=== PATIENT | female | born 1980 | race African-American/Black ===

== ENCOUNTER 2019-03-23 00:10 | Emergency (ER) | payer OTHER ==
[2019-03-23 00:38] VITALS: BMI 49.2
--- NOTE | 2019-03-23 01:38 | PDOC ---
History of Present Illness - General Chief Complaint: Chest Pain Stated Complaint: CHEST PAIN Time Seen by Provider: 03/23/19 01:38 History Source: Patient Exam Limitations: No Limitations Past History - Travel Traveled outside of the country in the last 30 days: No Close contact w/someone who was outside of country & ill: No - Past Medical History Allergies/Adverse Reactions: Allergies Allergy/AdvReac Type Severity Reaction Status Date / Time No Known Allergies Allergy Verified 03/23/19 00:36 Home Medications: Ambulatory Orders Metformin HCl [Glucophage] 500 mg PO BID #30 tablet 03/23/19 Metformin HCl [Glucophage] 500 mg PO BID #30 tablet 03/23/19 Metformin HCl [Glucophage] 500 mg PO BID #30 tablet MDD 2 tab 03/23/19 COPD: No - Suicide/Smoking/Psychosocial Hx Smoking History: Never smoked Have you smoked in the past 12 months: No Information on smoking cessation initiated: No Hx Alcohol Use: No Drug/Substance Use Hx: No *Physical Exam - Vital Signs Last Vital Signs Temp Pulse Resp BP Pulse Ox 98.0 F 73 18 110/73 99 03/23/19 00:36 03/23/19 00:36 03/23/19 00:36 03/23/19 00:36 03/23/19 00:36 ED Treatment Course - LABORATORY CBC & Chemistry Diagram: 03/23/19 02:15 03/23/19 02:15 Medical Decision Making - Medical Decision Making Pt was seen at bedside, also will be seen by attending Dr. Luna. Pt presenting with complaints of mid-sternal, reproducible chest pain, which has worsened since this afternoon. Pt states she has had cough with productive white sputum x1 month. Pt states she received z-pack in early February, which did not help with the sputum production or frequency of cough, but she had a breathing treatment at that time which helped her chest pressure. Pt has not been taking any medications at home. Considering [vs vs] Ordered work-up including CBC, CMP, cardiac profile, ECG, serum , chest x-ray. Provided 20 mg IV pepcid, 1 g ofirmev, and 3 amp duoneb for improvement of chest pressure and indigestion. Will continue to reassess pt and monitor for symptomatic improvement. ECG: NSR, intervals WNL. No TWIs or significant ST segment changes. No significant changes from prior ECG. 03/23/19 02:05 *DC/Admit/Observation/Transfer Diagnosis at time of Disposition: Atypical chest pain - Discharge Dispostion Disposition: HOME Condition at time of disposition: Good Decision to Admit order: No - Prescriptions Prescriptions: Metformin HCl [Glucophage] 500 mg PO BID #30 tablet Metformin HCl [Glucophage] 500 mg PO BID #30 tablet Metformin HCl [Glucophage] 500 mg PO BID #30 tablet MDD 2 tab - Referrals Referrals: ON STAFF,NOT [Primary Care Provider] - - Patient Instructions Printed Discharge Instructions: DI for Atypical Chest Pain Additional Instructions: You were seen in the ER today for chest pressure. The results of your labs and imaging today were normal. Please follow-up with your primary care doctor within 1-2 days to discuss your visit and make sure your symptoms have improved. Please return to the ER if you have any worsening pain, development of fevers or chills, loss of consciousness, inability to tolerate food or fluids , or any other concerns. - Post Discharge Activity
[2019-03-23] MEDS ORDERED: ALBUTEROL SO4 2.5/IPRATROPIUM 0.5 INH SOL 3 ML VIAL.NEB. NEB ONE ×2 (02:02→02:18)
[2019-03-23] MEDS ORDERED: ACETAMINOPHEN 1000 MG/100 ML VIAL (NON FORMULARY) IVPB ONE (02:03)
[2019-03-23] MEDS ORDERED: FAMOTIDINE 20 MG/50 ML IVPB 20 MG/50 ML MG IVPB ONE ×2 (02:03→02:19)
[2019-03-23] MEDS ORDERED: ACETAMINOPHEN INJECTION 100 ML IVPB ONE (02:18)
[2019-03-23 02:57] LABS: BASO % 0.4 % (0-2.0); HEMATOCRIT 37.8 % (32.4-45.2); HEMOGLOBIN 12.6 GM/dL (10.7-15.3); LYMPH % 43.4 % (8-40); MCHC 33.5 g/dl (32.0-36.0); MEAN CELL VOLUME 89.6 fl (80-96); MEAN PLT VOLUME 9.1 fl (7.5-11.1); MONO % 6.3 % (3.8-10.2); NEUT % 47.9 % (42.8-82.8); PLATELET COUNT 281 K/MM3 (134-434); RBC 4.22 M/mm3 (3.60-5.2); RDW 13.4 % (11.6-15.6)
[2019-03-23 03:34] LABS: ALBUMIN 3.1 g/dl (3.4-5.0); ALK PHOS 153 U/L (45-117); ANION GAP 7 MMOL/L (8-16); BILIRUBIN,TOTAL 0.2 mg/dL (0.2-1); BLOOD UREA NITROGEN 15.2 mg/dL (7-18); CHLORIDE 107 mmol/L (98-107); CO2 25 mmol/L (21-32); CREATININE 0.9 mg/dL (0.55-1.3); GLUCOSE,RANDOM 310 mg/dL (74-106); N-TERMINAL BNP 22.1 pg/ml (5-125); POTASSIUM 4.2 mmol/L (3.5-5.1); SGOT/AST 10 U/L (15-37); SGPT/ALT 18 U/L (13-61); SODIUM 139 mmol/L (136-145); TOT PROT 6.4 g/dl (6.4-8.2)
[2019-03-23] MEDS ORDERED: SODIUM CHLORIDE 1,000 ML IV STA (03:46)
--- NOTE | 2019-03-23 04:27 | PDOC ---
Attending Attestation - Resident Resident Name: Kary Castro - ED Attending Attestation I have performed the following: I have examined & evaluated the patient, The case was reviewed & discussed with the resident, I agree w/resident's findings & plan - HPI HPI: 03/23/19 04:25 38-year-old female with chest wall pain - Physicial Exam PE: 03/23/19 04:26 agree with resident exam - Medical Decision Making 03/23/19 04:26 38-year-old female with chest wall pain Chest x-ray shows no acute abnormality Labs are significant for elevated blood glucose Plan for IV fluid normal saline 1 L bolus and discharged on Glucophage twice a day with primary care follow-up Due to elevated blood sugar plan for troponin and EKG 2 in the ED
[2019-03-23 05:50] VITALS: BP 100/59; PULSE 55; TEMP 98.4
--- NOTE | 2019-03-27 11:44 | EKG ---
Test Reason : Blood Pressure : / mmHG Vent. Rate : 077 BPM Atrial Rate : 077 BPM P-R Int : 154 ms QRS Dur : 086 ms QT Int : 392 ms P-R-T Axes : 042 042 032 degrees QTc Int : 443 ms NORMAL SINUS RHYTHM NORMAL ECG NO PREVIOUS ECGS AVAILABLE Confirmed by ROSMERY RAMOS MD ([id number]) on 03/27/2019 11:44:01 AM Referred By: Confirmed By:ROSMERY RAMOS MD
== END 2019-03-23 06:05 | disposition home or self-care (01) ==
LOC: JER 00:10
PROC: 3E033NZ Introduction of Analgesics, Hypnotics, Sedatives into Peripheral Vein, Percutaneous Approach (ICD-10-PCS; principal; 2019-03-23)
PROC: 3E033GC Introduction of Other Therapeutic Substance into Peripheral Vein, Percutaneous Approach (ICD-10-PCS; 2019-03-23)
PROC: 3E0337Z Introduction of Electrolytic and Water Balance Substance into Peripheral Vein, Percutaneous Approach (ICD-10-PCS; 2019-03-23)
PROC: 3E0F7GC Introduction of Other Therapeutic Substance into Respiratory Tract, Via Natural or Artificial Opening (ICD-10-PCS; 2019-03-23)
DX: R07.89 Other chest pain (principal); R09.3 Abnormal sputum
CPT/HCPCS: 36415; 71046-TC-FY; 80053; 82550; 83880; 84484; 84703; 85025; 93005; 93010; 99283-25; J0131; J7030